=== PATIENT | male | born 1950 | race Caucasian/White ===

== ENCOUNTER → 2020-06-05 09:17 | Outpatient (BNVA) | payer MEDICARE, OTHER, SELFPAY | PROVIDERS: PCP Internal Medicine; Referring Provider Internal Medicine; Visit Provider Nurse Practitioner Family | DX: I48.91 Unspecified atrial fibrillation (principal); I50.20 Unspecified systolic (congestive) heart failure; Z79.01 Long term (current) use of anticoagulants | CPT/HCPCS: 93000; 99214 ==

== ENCOUNTER → 2020-06-21 09:24 | Outpatient (BNVA) | payer MEDICARE, MEDICAID, SELFPAY | PROVIDERS: PCP Internal Medicine; Referring Provider Internal Medicine; Visit Provider Internal Medicine | DX: I48.19 Other persistent atrial fibrillation (principal); I42.9 Cardiomyopathy, unspecified; Z79.01 Long term (current) use of anticoagulants | CPT/HCPCS: 99212 ==

== ENCOUNTER → 2020-07-04 07:38 | Outpatient (REF) | payer MEDICARE, MEDICAID, SELFPAY ==
--- NOTE | 2020-07-04 07:43 | CA_ITS ---
Transthoracic Echocardiogram Patient (Last, First, Middle): Yunier Arias, Gender: Male Date of : 1950 Age: 70 Procedure Date: 07/04/2020 Procedure Type: Transthoracic Echocardiogram Location: OP Height: 182.88 cm Weight: 105.24 kg BSA: 2.27 m2 Heart Rate: bpm BP: 128 / 80 mmHg Rn Paralegal: Referring MD: Jeferson Giles MD Symptoms: I42.9 - Cardiomyopathy, unspecified Study Quality: Fair ECG Rhythm: Atrial Fibrillation Conclusions: - The left ventricular systolic function is normal. The visually estimated ejection fraction is between 55-60%. Findings Left Ventricle Normal left ventricular cavity size. There is mildly increased left ventricular wall thickness. The left ventricular systolic function is normal. The visually estimated ejection fraction is between 55-60%. Regional wall motion abnormalities can not be excluded due to suboptimal endocardial definition. Diastolic function is indeterminate on the basis of available data. Prior Study Comparison Changes noted compared to prior study dated: 04/19/2020. Improved LVEF. Measurements 2D Linear Measurements IVSd: 1.25 0.6-0.9/0.6-1.0 cm LVIDd: 4.50 3.9-5.3/4.2-5.9 cm LVIDd Index: 1.98 2.4-3.2/2.2-3.1 cm/m2 LVIDs: 3.15 2.0-3.6 cm LVPWd: 1.23 0.7-1.1 cm LV Mass: 258.90 67-162/88-224 g LV Mass Index: 114.05 43-95/49-115 g/m2 2D Systolic Function EF 4C: 52.30 >55% EF 2C: 50.30 >55% EF BiP: 53.70 >55% Updated in Other Vendor System with Status of Final Jeferson Giles MD electronically signed on 07/06/2020 1:16:15 PM with status of Final
== END ==
LOC: HO.CARD 07:38
PROVIDERS: PCP Internal Medicine; Visit Provider Internal Medicine
DX: I42.9 Cardiomyopathy, unspecified (principal)
CPT/HCPCS: 93308

== ENCOUNTER → 2020-07-19 13:18 | Outpatient (REF) | payer MEDICARE, OTHER, SELFPAY ==
--- NOTE | 2020-07-19 13:29 | ECG_ITS ---
Hook-up date: 2020-07-19 13:51:00 Duration: 47:59:00 Test Indications: AFIB Medications: 518755 QRS complexes 494 Ventricular ectopics which represent <1 % of total QRS comp. * Supraventricular ectopics which represent % of total QRS comp. * Paced QRS complexs which represent % of total QRS comp. VENTRICULAR ECTOPY 453 Isolated 0 Bigeminal Cycles 14 Couplets 0 Runs 0 Beats in Runs 0 Beats LONGEST at 0 BPM at :: -- 0 Beats FASTEST at 0 BPM at :: -- SUPRAVENTRICULAR ECTOPY * Isolated * Couplets * Runs * Beats in Runs * Beats LONGEST at * BPM at :: -- * Beats FASTEST at * BPM at :: -- HEART RATES 42 MIN at 12:00:17 2020-07-20 74 AVG 175 MAX at 13:57:40 2020-07-19 LONGEST RR 2.4640 secs at 12:24:19 2020-07-20 S-T LEVELS Channel 1 - 128 mm at 13:51:00 2020-07-19 - 128 mm at 13:51:00 2020-07-19 Channel 2 - 128 mm at 13:51:00 2020-07-19 - 128 mm at 13:51:00 2020-07-19 Channel 3 - 128 mm at 03:31:01 -- - 128 mm at 03:31:01 Basic rhythm Atrial fibrillation Adequate rate control with average HR of 74 bpm No long pause or profound bradycardia Occasional Premature ventricular complexes One 6 beat wide complex run appears to AF with aberrancy Patient did not report any symptoms in the diary Referred By: Jeferson Giles Overread By: MIRELLA EATON MD
[2020-07-19 15:05] LABS: Anion Gap 13 (12-20); Blood Urea Nitrogen 10 mg/dL (9-16); Calcium 8.9 mg/dL (8.4-10.2); Carbon Dioxide 26 mmol/L (22-29); Chloride 103 mmol/L (96-108); Estimated Glomerular Filt Rate > 60; Glucose Random 94 mg/dL (60-115); Potassium 4.3 mmol/l (3.3-5.1); Sodium 138 mmol/L (135-145)
[2020-07-19 15:10] LABS: Digoxin 0.6 ng/mL (0.8-2.0)
== END ==
LOC: HO.CARD 13:18
PROVIDERS: Absent Provider Nurse Practitioner Family; PCP Internal Medicine; Visit Provider Internal Medicine
DX: I48.19 Other persistent atrial fibrillation (principal); I48.91 Unspecified atrial fibrillation
CPT/HCPCS: 80048; 80162; 93225; 93226

== ENCOUNTER → 2020-08-01 10:12 | Outpatient (BNVA) | payer MEDICARE, OTHER, SELFPAY | PROVIDERS: PCP Internal Medicine; Visit Provider Internal Medicine | DX: I48.19 Other persistent atrial fibrillation (principal); I42.9 Cardiomyopathy, unspecified | CPT/HCPCS: 93005; 99212 ==

== ENCOUNTER → 2020-11-20 10:05 | Outpatient (BNVA) | payer MEDICARE, OTHER, SELFPAY | PROVIDERS: PCP Internal Medicine; Visit Provider Internal Medicine | DX: I48.19 Other persistent atrial fibrillation (principal); I42.8 Other cardiomyopathies | CPT/HCPCS: 99212 ==

== ENCOUNTER → 2021-05-22 10:17 | Outpatient (REF) | payer MEDICARE, OTHER, SELFPAY ==
--- NOTE | 2021-05-22 10:26 | CA_ITS ---
Transthoracic Echocardiogram Patient (Last, First, Middle): Yunier Arias, Gender: Male Date of : 1950 Age: 71 Procedure Date: 05/22/2021 Procedure Type: Transthoracic Echocardiogram Location: OP Height: 182.88 cm Weight: 107.5 kg BSA: 2.29 m2 Heart Rate: bpm BP: 110 / 70 mmHg Kier Boiler: LAYNE Referring MD: Jeferson Giles MD Symptoms: I48.19 - Other persistent atrial fibrillation Study Quality: Fair ECG Rhythm: Atrial Fibrillation Conclusions: - The left ventricular systolic function is normal. The visually estimated ejection fraction is between 55-60%. - There is mildly decreased right ventricular systolic function. - No obvious valvular pathology seen on this study. Findings Left Ventricle Normal left ventricular cavity size. There is mildly increased left ventricular wall thickness. The left ventricular systolic function is normal. The visually estimated ejection fraction is between 55-60%. There is no evidence of regional wall motion abnormalities. Diastolic function is indeterminate on the basis of available data. Right Ventricle Normal right ventricular cavity size. There is mildly decreased right ventricular systolic function. TAPSE about 1.6cm. Atria Both atria are normal in size. Aortic Valve There is a normal trileaflet aortic valve. There is mild calcification of the aortic valve. There is no aortic valve stenosis. There is no aortic valve regurgitation. Mitral Valve The mitral valve appears normal. There is no mitral valve regurgitation. There is no mitral valve stenosis. Pulmonic Valve The pulmonic valve was not well visualized. Tricuspid Valve There is trace tricuspid valve regurgitation. The pulmonary artery systolic pressure is normal. Great Vessels The asc aorta is normal in size. Venous The inferior vena cava was not well visualized. Pericardium/Pleural There is no evidence of pericardial effusion. Prior Study Comparison No significant change compared to prior study dated: 07/04/2020. Recommendations, Care & Conclusions No obvious valvular pathology seen on this study. Measurements 2D Linear Measurements IVSd: 1.26 0.6-0.9/0.6-1.0 cm LVIDd: 4.60 3.9-5.3/4.2-5.9 cm LVIDd Index: 2.01 2.4-3.2/2.2-3.1 cm/m2 LVIDs: 2.67 2.0-3.6 cm LVPWd: 1.21 0.7-1.1 cm Ao Root: 3.20 2.1-3.5 cm LA Diam: 4.40 2.7-3.8/3.0-4.0 cm LAIDs Index: 1.92 1.5-2.3 cm/m2 LV Mass: 266.30 67-162/88-224 g LV Mass Index: 116.29 43-95/49-115 g/m2 LVOT Diam: 2.00 3.0+(-)1.3 cm 2D Systolic Function EF 4C: 58.20 >55% EF 2C: 40.60 >55% EF BiP: 50.60 >55% Mitral Valve MV Pk E: 1.12 MV Decel Time: 154.00 E'Medial: 8.92 E/E' Med: 12.60 PHT: 45.00 MVA PHT: 4.89 Decel [place]: 7.28 Aortic Valve AoV Pk Darius: 1.21 AoV Pk Grad: 6.00 LVOT LVOT Pk Darius: 0.78 LVOT Mn Darius: 0.51 LVOT VTI: 0.16 LVOT Pk Grad: 2.00 LVOT Mn Grad: 1.00 LVOT Diam: 2.00 LVOT Area: 3.14 Diastolic Function MV Pk E: 1.12 E'Medial: 8.92 E/E' Med: 12.60 Right Ventricle TAPSE (mm): 1.52 Tricuspid Valve TR Pk Darius: 2.46 TR Pk Grad: 24.00 Great Vessels Aorta Ao Root-2D: 3.20 2.0-3.7 cm Ao Asc: 3.10 2.1-3.4 cm Updated in Other Vendor System with Status of Final Jeferson Giles MD electronically signed on 05/22/2021 4:05:08 PM with status of Final
--- NOTE | 2021-05-22 10:26 | ECG_ITS ---
Hook-up date: 2021-05-22 11:44:00 Duration: 26:37:00 Test Indications: persistant afib Medications: 33264 QRS complexes 826 Ventricular ectopics which represent <1 % of total QRS comp. * Supraventricular ectopics which represent % of total QRS comp. * Paced QRS complexs which represent % of total QRS comp. VENTRICULAR ECTOPY 822 Isolated 3 Bigeminal Cycles 2 Couplets 0 Runs 0 Beats in Runs * Beats LONGEST at * BPM at :: -- * Beats FASTEST at * BPM at :: -- SUPRAVENTRICULAR ECTOPY * Isolated * Couplets * Runs * Beats in Runs * Beats LONGEST at * BPM at :: -- * Beats FASTEST at * BPM at :: -- HEART RATES 40 MIN at 15:08:37 2021-05-22 65 AVG 150 MAX at 11:46:26 2021-05-22 LONGEST RR 2.6560 secs at 15:13:38 2021-05-22 S-T LEVELS Channel 1 - 128 mm at 11:44:00 2021-05-22 - 128 mm at 11:44:00 2021-05-22 Channel 2 - 128 mm at 11:44:00 2021-05-22 - 128 mm at 11:44:00 2021-05-22 Channel 3 - 128 mm at 03:10:31 -- - 128 mm at 03:10:31 Underlying rhythm is atrial fibrillation; Average ventricular rate 65/min; range 40-150/min; About 31% of the time, rate <60/min; about 2% of the time, rate >100/min; Rare PVCs. Referred By: Steve Lowry Overread By: STEVE LOWRY
== END ==
LOC: HO.CARD 10:17
PROVIDERS: Visit Provider Internal Medicine
DX: I48.19 Other persistent atrial fibrillation (principal)
CPT/HCPCS: 93225; 93226; 93306

== ENCOUNTER → 2021-06-10 09:52 | Outpatient (BNVA) | payer MEDICARE, OTHER, SELFPAY | PROVIDERS: PCP Internal Medicine; Referring Provider Internal Medicine; Visit Provider Internal Medicine | DX: I48.19 Other persistent atrial fibrillation (principal); I42.8 Other cardiomyopathies | CPT/HCPCS: 99212 ==

== ENCOUNTER → 2021-12-03 10:20 | Outpatient (BNVA) | payer MEDICARE, OTHER, SELFPAY | PROVIDERS: PCP Internal Medicine; Referring Provider Internal Medicine; Visit Provider Internal Medicine | DX: I48.19 Other persistent atrial fibrillation (principal); I42.8 Other cardiomyopathies | CPT/HCPCS: 93005; 99212 ==

== ENCOUNTER → 2022-03-21 09:19 | Outpatient (BNVA) | payer MEDICARE, SELFPAY | PROVIDERS: PCP Internal Medicine; Referring Provider Internal Medicine; Visit Provider Surgery | DX: L72.3 Sebaceous cyst (principal) | CPT/HCPCS: 99202 ==

== ENCOUNTER 2022-05-01 12:56 | Outpatient (REF) | payer MEDICARE, SELFPAY ==
[2022-05-01 12:54] VITALS: BMI 30.9
[2022-05-01 12:55] VITALS: BP 153/54; PULSE 86; RESP 16; TEMP 37.1; O2SAT 95
[2022-05-01 13:26] VITALS: BP 144/68; PULSE 84; RESP 16; O2SAT 95
--- NOTE | 2022-05-02 15:03 | P.OP_ITS ---
Operative Note Operative Note Date of Service: 05/01/22 Narrative: Preoperative diagnosis: Epidermal inclusion cyst left face Postoperative diagnosis: Same Procedure: Excision of epidermal inclusion cyst left face Surgeon: Daniel Adam MD Compliance Testing Analyst: No physician Anesthesia: Local lidocaine 2% with epinephrine Indications for procedure: 72-year-old male patient presenting with an enlarging epidermal inclusion cyst in a pre-auricular location in the left face just lateral to the eye. Lesion has been increasing in size but is never become infected. Lesion now measures approximately 2 cm in diameter. Patient is requesting excision. Operative findings: 2 cm non infected epidermal inclusion cyst of the left face Specimen: Epidermal inclusion cyst left face Estimated blood loss: 1 mL Complications: None Procedure details: Patient was brought to the minor surgery suite placed in a supine position, sitting position. The site of surgery was confirmed in the left face. After assuring informed consent the skin was prepped with Betadine and draped in a sterile fashion. Local anesthesia consisting of 2% lidocaine with epinephrine was then infiltrated around the lesion. An elliptical incision oriented transversely was then created with a 15 blade. The incision was carried out through skin down to the cyst wall. This was then dissected from the surrounding subcutaneous tissue. The sac was completely dissected and sent to pathology for further examination. Light pressure was held to maintain hemostasis. Skin was then closed using interrupted 5 0 nylon sutures. Sterile dressings consisting of 2 x 2 gauze and Tegaderm were then applied. The patient tolerated the procedure well. Sponge, instrument, and needle counts were reported as correct. The patient was discharged to home in stable condition.
== END 2022-05-01 12:57 | disposition home or self-care (01) ==
LOC: HO.MS 12:56
PROVIDERS: PCP Internal Medicine; Visit Provider Surgery
PROC: (CPT 11442; principal; 2022-05-01 13:00)
DX: L72.0 Epidermal cyst (principal)
CPT/HCPCS: 11442; 88304

== ENCOUNTER → 2022-05-08 10:21 | Outpatient (BNVA) | payer MEDICARE, OTHER, SELFPAY | PROVIDERS: PCP Internal Medicine; Visit Provider Surgery | DX: Z09 Encounter for follow-up examination after completed treatment for conditions other than malignant neoplasm (principal); Z87.2 Personal history of diseases of the skin and subcutaneous tissue | CPT/HCPCS: 99212 ==

== ENCOUNTER → 2022-07-17 10:55 | Outpatient (BNVA) | payer MEDICARE, SELFPAY | PROVIDERS: PCP Internal Medicine; Referring Provider Internal Medicine; Visit Provider Internal Medicine | DX: I48.19 Other persistent atrial fibrillation (principal); I42.8 Other cardiomyopathies | CPT/HCPCS: 99212 ==

== ENCOUNTER 2022-12-08 13:34 | Outpatient (REF) | payer MEDICARE, SELFPAY | END 2022-12-08 13:35 | disposition home or self-care (01) | LOC: HO.HOSX 13:34 | PROVIDERS: Visit Provider Orthopaedic Surgery | DX: Z13.89 Encounter for screening for other disorder (principal) ==

== ENCOUNTER 2023-05-15 11:16 | Emergency (ER) | payer MEDICARE, OTHER, SELFPAY ==
--- NOTE | 2023-05-15 11:46 | ED.CPR ---
HPI - CPR General Chief Complaint: Cardiac Arrest/CPR Stated Complaint: pt coming in cpr in progress, intubated, per ems Time Seen by Provider: 05/15/23 11:21 History of Present Illness HPI narrative: Patient is a 73-year-old male with a history of atrial fibrillation currently on Eliquis history of congestive heart failure history of cardiomyopathy was sitting at home noted patient suddenly slumped over no CPR was done but EMS was contacted immediately. On EMS arrival patient was in VFib patient was shocked x2 with 300 joules. Started on amiodarone. An airway was established after approximately 2 attempts. CPR was in progress patient was given multiple rounds of epinephrine. Patient was sent to the emergency department for further evaluation. Related Data Home Medications Medication Instructions Recorded Confirmed apixaban 5 mg tablet (Eliquis) 5 mg PO BID 06/05/20 07/17/22 gabapentin 300 mg capsule 300 mg PO TID 06/05/20 07/17/22 lorazepam 1 mg tablet 1 mg PO BID 06/21/20 07/17/22 metoprolol tartrate 100 mg tablet 100 mg PO BID 11/20/20 07/17/22 atorvastatin 10 mg tablet 10 mg PO DAILY 06/10/21 07/17/22 gabapentin 100 mg capsule mg PO 12/03/21 07/17/22 metformin 500 mg tablet 500 mg PO BID 12/03/21 07/17/22 Previous Rx's Medication Instructions Recorded digoxin 250 mcg (0.25 mg) tablet 250 mcg PO DAILY 30 days #30 tabs 06/05/20 Allergies Allergy/AdvReac Type Severity Reaction Status Date / Time No Known Allergies Allergy Verified 07/17/22 10:58 [No Known Allergies*] Review of Systems Review of Systems: Unable to obtain review systems secondary to patient's condition [facility] Past Medical History Medical History Cardiomyopathy Persistent atrial fibrillation HFrEF (heart failure with reduced ejection fraction) Afib Surgical History History of epidermal inclusion cyst excision (05/01/22) Hx of hernia repair Hx of total knee replacement Family History Family History Father No problems noted. Mother No problems noted. Social History Social History Alcohol intake: former Patient Tobacco Use Status: Never used Tobacco Advance Directives: Yes Advance Directives Information Provided: Yes Advance Directives on File: No Physical Exam Vital Signs: Vital Signs: Appearance: CPR in progress Eyes: Pupil fixed and dilated ENT: Pharynx normal. Neck: Normal inspection. Neck supple. No lymph nodes noted. No crepitus CVS: Normal CPR in progress Respiratory: Positive breath sounds bilaterally on bagging. Positive color change to yellow on the CO2 detector. Abdomen: Distended Skin: Cyanotic Extremities: Cyanotic Neuro: CPR in progress Medical Decision Making Medical Decision Making MDM Narrative: Patient is 73 years old had a cardiac arrest was in VFib shocked into a possible EEA pattern. Airway established. On arrival the patient's ET tube was checked. It was breath sounds bilaterally. CO2 detector color change to yellow. Positive steam noted from the ET tube. CPR was in progress by Jim. 7 mg of epinephrine was already given. Patient's NG tube was hooked up to suction. There was no palpable pulse noted. Patient was in a asystole versus PEA pattern that is very slow approximately 30. Wide complex. Additional doses of epi, bicarb, calcium was given. A few rounds of CPR was in progress. There was never any pulse that was palpable. Patient's code was called at 11:25. Case discussed with patient's family. Differential Diagnosis Differential Diagnoses: The differential diagnosis associated with the presentation includes Cardiac arrest, myocardial infarction, pulmonary emboli, pericardial effusion, hyperkalemia, hypovolemia, dissection, PE Independent Historian Clinical information obtained from an independent historian. History obtained from or confirmed by: Spouse and EMS External Record Review External record reviewed: Inpatient record and Prior outpatient labs Patient's cardiology record reviewed Chronic Conditions Atrial fibrillation Critical Care Time Critical Care Time Critical Care Time: Yes Total Critical Care Time: 35 Attestation: I have personally provided 35 minutes of critical care time exclusive of time spent on separately billable procedures. Time includes review of lab data, radiology results, discussion with consultants, and monitoring for potential decompensation. Interventions were performed as documented above Discharge Plan Discharge Clinical Impression: Cardiomyopathy, Cardiac arrest, Afib Patient Disposition: Prescriptions: No Action metoprolol tartrate 100 mg tablet 100 mg PO BID atorvastatin 10 mg tablet 10 mg PO DAILY Eliquis 5 mg tablet 5 mg PO BID gabapentin 300 mg capsule 300 mg PO TID digoxin 250 mcg (0.25 mg) tablet 250 mcg PO DAILY 30 Days Qty: 30 3RF lorazepam 1 mg tablet 1 mg PO BID gabapentin 100 mg capsule PO metformin 500 mg tablet 500 mg PO BID
--- NOTE | 2023-05-15 11:49 | PC.NURSE ---
[facility] contacted and spoke with Akash Kearns, Reference # [id number], regarding pt. Stated they are accepting him as a possible donor. Provider aware. Postmortem care done. Family at bedside. Zheng at bedside.
[2023-05-15 13:10] LABS: Glucose, Whole Blood 114 mg/dL (60-115)
== END 2023-05-15 14:09 | disposition expired ==
PROVIDERS: Emergency Provider Emergency Medicine Emergency Medical Services; PCP Internal Medicine
DX: I46.9 Cardiac arrest, cause unspecified (principal); I48.91 Unspecified atrial fibrillation; Z79.01 Long term (current) use of anticoagulants; Z79.899 Other long term (current) drug therapy
CPT/HCPCS: 82947; 96374; 96375; 99283; 99285; J0171